=== PATIENT | male | born 1965 | race Caucasian/White ===

== ENCOUNTER 2017-06-04 09:54 | Emergency (ER) | payer MEDICAID ==
[~2017-06-04] VITALS: Ht 172.7 cm; Wt 82.6 kg
[~2017-06-04 09:54] MED LIST: HUM SUBQ; LEVO0.2T5 PO; LISI-420 PO
[2017-06-04 10:24] VITALS: BP 129/86
[2017-06-04] MEDS ORDERED: METF850T4 PO (10:28)
[2017-06-04] MEDS ORDERED: JANUMET (10:28)
--- NOTE | 2017-06-04 10:31 | NUR ---
BLOOD GLUCOSE 467 MG/DL. PT STS TOOK 20 UNITS OF INSULIN THIS AM. LARGE BREAKFAST.
[2017-06-04 11:07] LABS: HEMATOCRIT 46.5 % (36-52); HEMOGLOBIN 15.5 g/dL (12.0-18.0); MEAN CORPUSCULAR HEMOGLOBIN 29 pg (27-31); MEAN CORPUSCULAR HGB CONC 33 g/dL (33-37); MEAN CORPUSCULAR VOLUME 88 fL (80-94); PLATELET COUNT (AUTO) 485 K/uL (140-450); RED BLOOD CELL COUNT(AUTO) 5.31 MIL/uL (4.20-6.10); RED CELL DISTRIBUTION WIDTH 12.5 % (11.6-13.7); WHITE BLOOD COUNT (AUTO) 21.2 K/uL (4.8-10.8)
[2017-06-04 11:23] LABS: ACETONE, SERUM TRACE (NEGATIVE)
[2017-06-04 11:25] LABS: ALBUMIN 3.2 g/dL (3.4-5.0); ANION GAP 16.2 (8-16); ASPARTATE AMINOTRANSFERASE 18 U/L (15-37); CARBON DIOXIDE 27.1 mmol/L (21-32); CHLORIDE 91 mmol/L (98-107); CREATININE 0.9 mg/dL (0.7-1.3); GFR ARICAN-AMERICAN 114 mL/min (>90); POTASSIUM 5.3 mmol/L (3.5-5.1); SODIUM SERUM 129 mmol/L (136-145); TOTAL BILIRUBIN 0.4 mg/dL (0.0-1.0); UREA NITROGEN, BLOOD 22 mg/dL (7-18)
[2017-06-04 11:26] LABS: GLUCOSE 421 mg/dL (74-106)
--- NOTE | 2017-06-04 11:42 | NUR ---
Patient ambulated to bed 07.
--- NOTE | 2017-06-04 11:45 | NUR ---
51/M BIB RECEENTLY DC'D FROM [place] FOR DKA LAST THURSDAY. HERE TODAY FOR PERPETUAL GASTRIC REFLUX CAUSING THROAT PAIN. HX DM, HTN. SKIN IS PINK/WARM/DRY; AAOX4 WITH EVEN AND STEADY GAIT; LUNGS CLEAR BL; PATIENT STATES PAIN OF 8/10 AT THIS TIME; PATIENT POSITIONED FOR COMFORT; HOB ELEVATED; BEDRAILS UP X2; BED DOWN. ER MD MADE AWARE OF PT STATUS.
[2017-06-04 11:55] LABS: EOSINOPHILS % (MANUAL) 6 % (0-4); LYMPHOCYTES % (MANUAL) 17 % (20-46); MONOCYTES % (MANUAL) 4 % (5-12)
--- NOTE | 2017-06-04 11:58 | NUR ---
Dr. Mcclendon evaluating patient at bedside.
[2017-06-04] MEDS ORDERED: INSULIN HUMAN REGULAR 100 UNITS/ML 10 ML VIAL IVP ONE (12:10)
[2017-06-04] MEDS ORDERED: NACL 0.9% 1,000 ML IV ONE (12:10)
[2017-06-04] MEDS ORDERED: DICYCLOMINE HCL LIQUID 20 MG, ALUMINUM HYD/MAG/SIMETHICONE 30 ML, LIDOCAINE VISCOUS 2% ... PO ONE ×3 (12:10)
[2017-06-04 13:08] VITALS: BP 118/71
--- NOTE | 2017-06-04 13:08 | NUR ---
Patient discharged with v/s stable. Written and verbal after care instructions given and explained. Patient alert, oriented and verbalized understanding of instructions. Ambulatory with steady gait. All questions addressed prior to discharge. ID band removed. Patient advised to follow up with PMD. Rx of PRILOSEC given. Patient educated on indication of medication including possible reaction and side effects. Opportunity to ask questions provided and answered.
== END 2017-06-04 13:08 | disposition home or self-care (01) ==
LOC: MED 09:54
DX: K21.9 Gastro-esophageal reflux disease without esophagitis (principal); E11.65 Type 2 diabetes mellitus with hyperglycemia; E03.9 Hypothyroidism, unspecified; F17.210 Nicotine dependence, cigarettes, uncomplicated
CPT/HCPCS: 36415; 71020; 80053; 81002; 82009; 82948; 85025; 96361; 96374; 99285; J1815; J7030

== ENCOUNTER 2018-01-15 12:26 | Emergency (ER) | payer MEDICAID ==
[~2018-01-15] VITALS: Ht 172.7 cm; Wt 69.9 kg
[~2018-01-15 12:26] MED LIST changes: +JANUMET; +METF850T4 PO
[2018-01-15 12:58] VITALS: BP 130/89
--- NOTE | 2018-01-15 13:04 | NUR ---
STREP SWABS COLLECTED AND SENT TO LAB. PT TOLERATED WELL. PT SENT TO LOBBY TO WAIT FOR ED BED.
--- NOTE | 2018-01-15 14:48 | NUR ---
PT AMBULATES TO BED 6 WITH NORMAL GAIT
--- NOTE | 2018-01-15 15:00 | NUR ---
THROAT PAIN FOR A COUPLE MONTHS; REMOVED 12 TEETH THURSDAY; RX'D PCN BUT PATIENT STATES HE CANNOT SWALLOW THE MEDICATION HX DM RX: PENICILLIN VK 500MG QID, INSULIN 70/30; 25 UNITS (10 IN AM; 15 IN PM)
[2018-01-15] MEDS ORDERED: NACL 0.9% 1,000 ML IV SCH (15:22)
[2018-01-15] MEDS ORDERED: ceFAZolin 1,000 MG in DEXT 5% MINI-BAG PLUS 50 ML IV ONE (15:25)
[2018-01-15] MEDS ORDERED: ONDANSETRON 4 MG/2 ML VIAL IVP ONE (15:25)
[2018-01-15] MEDS ORDERED: ceFAZolin 1,000 MG VIAL ONE (15:30)
[2018-01-15 15:58] LABS: BASOPHILS % (AUTO) 0.5 % (0.0-2.0); EOSINOPHILS # (AUTO) 0.1 K/uL (0-0.4); HEMOGLOBIN 16.8 g/dL (12.0-18.0); LYMPHOCYTES # (AUTO) 1.9 K/uL (2.0-11.5); LYMPHOCYTES % (AUTO) 21.3 % (20.5-51.1); MEAN CORPUSCULAR HEMOGLOBIN 30 pg (27-31); MEAN CORPUSCULAR HGB CONC 34 g/dL (33-37); MONOCYTES # (AUTO) 0.5 K/uL (0.8-1.0); MONOCYTES % (AUTO) 6.1 % (1.7-9.3); NEUTROPHILS # (AUTO) 6.3 K/uL (1.8-7.7); NEUTROPHILS % (AUTO) 71.1 % (42.2-75.2); PLATELET COUNT (AUTO) 304 K/uL (140-450); RED BLOOD CELL COUNT(AUTO) 5.55 MIL/uL (4.20-6.10); RED CELL DISTRIBUTION WIDTH 12.9 % (11.6-13.7); WHITE BLOOD COUNT (AUTO) 8.8 K/uL (4.8-10.8)
[2018-01-15 16:21] LABS: ALBUMIN 3.5 g/dL (3.4-5.0); ANION GAP 16.4 (8-16); CREATININE 0.9 mg/dL (0.7-1.3); POTASSIUM 5.4 mmol/L (3.5-5.1); TOTAL BILIRUBIN 0.6 mg/dL (0.0-1.0)
--- NOTE | 2018-01-15 16:30 | NUR ---
PT RESTING IN NO APPERENT DISTRESS. WILL CONTINUE TO MONITOR
[2018-01-15 18:44] VITALS: BP 128/82
--- NOTE | 2018-01-15 18:44 | NUR ---
Patient discharged with v/s stable. Written and verbal after care instructions given and explained. Patient alert, oriented and verbalized understanding of instructions. Ambulatory with steady gait. All questions addressed prior to discharge. ID band removed. Patient advised to follow up with PMD. Rx of LIDOCAINE 2%SOLUTION, REGLAN, CLINDAMYACYN PALMITATE SOLUTION, ZOFRAN ODT 4MG given. Patient educated on indication of medication including possible reaction and side effects. Opportunity to ask questions provided and answered.
== END 2018-01-15 18:44 | disposition home or self-care (01) ==
LOC: MED 12:26
DX: J02.9 Acute pharyngitis, unspecified (principal); R11.0 Nausea; E11.9 Type 2 diabetes mellitus without complications; K21.9 Gastro-esophageal reflux disease without esophagitis; I10 Essential (primary) hypertension; E03.9 Hypothyroidism, unspecified; F17.210 Nicotine dependence, cigarettes, uncomplicated; Z79.899 Other long term (current) drug therapy
CPT/HCPCS: 80053; 82948; 83690; 85025; 87081; 96365; 96375; 99284; J0690; J2405

== ENCOUNTER 2018-04-08 10:21 | Inpatient (IN) | payer MEDICAID, OTHER ==
[~2018-04-08] VITALS: Ht 172.7 cm; Wt 69.9 kg
[2018-04-08 10:30] VITALS: BP 171/89
--- NOTE | 2018-04-08 10:39 | NUR ---
PT AMBULATES TO BED 1
--- NOTE | 2018-04-08 10:40 | NUR ---
PT. BIB W C/O HYPERGLYCEMIA . PT STATES " I HAVE NOT BEEN ABLE TO GET A PRIMARY DOCTOR SO I HAVE BEEN DISPERSING MY INSULIN THAT IS LEFT, THIS MORNING I WOKE UP WITH SHORTNESS OR BREATH AND I JUST FEEL SICK". PT. DENIES ANY PAIN AT THIS TIME. SOB , 2L VIA NC STARTED , ACCESORY MUSCLE USED , TACHYPNEA NOTED. PT. HAS WARM AND DRY SKIN. CLEAR SPEECH, ABLE TO SPEAK IN COMPLETE SENTENCES, O2 : 99% VIA NC 2L. BS: 473 UPON ARRIVAL. PT STATES " I VOMITED 10 TIMES IT WAS BROWNISH SINCE THIS MORNING, I KNOW ITS BECAUSE OF MY BLOOD SUGAR". LS: CLEAR BIALTERALLY. PT. SMOKES " 1/2 A PACK A DAY". GCS 15. ER MD KENNY NOTIFIED. WILL CONTINUE TO MONITOR. AT BEDSIDE.
[2018-04-08] MEDS ORDERED: NACL 0.9% 1,000 ML IV SCH (10:53)
[2018-04-08] MEDS ORDERED: NACL 0.9% 2,000 ML IV SCH (10:53)
[2018-04-08] MEDS ORDERED: INSULIN REGULAR, HUMAN 100 UNIT/ML VIAL SUBQ ONE (11:00)
[2018-04-08 11:12] LABS: BASOPHILS # (AUTO) 0.1 K/uL (0.00-0.22); BASOPHILS % (AUTO) 0.5 % (0.0-2.0); EOSINOPHILS % (AUTO) 0.1 % (0.0-4.0); HEMATOCRIT 50.6 % (36-52); HEMOGLOBIN 16.2 g/dL (12.0-18.0); LYMPHOCYTES # (AUTO) 2.4 K/uL (2.0-11.5); LYMPHOCYTES % (AUTO) 14.3 % (20.5-51.1); MEAN CORPUSCULAR HEMOGLOBIN 30 pg (27-31); MEAN CORPUSCULAR HGB CONC 32 g/dL (33-37); MEAN CORPUSCULAR VOLUME 94.1 fL (80-94); MONOCYTES # (AUTO) 0.8 K/uL (0.8-1.0); MONOCYTES % (AUTO) 4.6 % (1.7-9.3); NEUTROPHILS # (AUTO) 13.5 K/uL (1.8-7.7); NEUTROPHILS % (AUTO) 80.5 % (42.2-75.2); PLATELET COUNT (AUTO) 456 K/uL (140-450); RED BLOOD CELL COUNT(AUTO) 5.38 MIL/uL (4.20-6.10); RED CELL DISTRIBUTION WIDTH 15.2 % (11.6-13.7); WHITE BLOOD COUNT (AUTO) 16.8 K/uL (4.8-10.8)
--- NOTE | 2018-04-08 11:25 | NUR ---
pt unable to provide urine at this time provided with ice water. [place] vazquez notified.
[2018-04-08 11:30] LABS: ACETONE, SERUM SMALL (NEGATIVE); PROTHROMBIN TIME 9.4 secs (10.8-13.4)
--- NOTE | 2018-04-08 11:36 | NUR ---
Note undone in [facility] - 04/08/18 at 1423 by ROBBIN JANIS FROM LAB CALLED TO REPORT CRITICAL LAB FINDING OF LACTIC ACID : 4.4 . JANIS KENNY NOTIFIED. Addendum: 04/08/18 at 1422 by ROBBIN Amendment undone in [facility] - 04/08/18 at 1423 by ROBBIN JANIS FROM LAB CALLED TO REPORT CRITICAL LAB FINDING OF LACTIC ACID : 4.4 . JANIS KENNY NOTIFIED. NO FURTHER ORDERS AT THIS TIME.
--- NOTE | 2018-04-08 11:36 | NUR ---
JANIS FROM LAB CALLED TO REPORT CRITICAL LAB FINDING OF LACTIC ACID : 4.4 . ER MD KENNY NOTIFIED. NO FURTHER ORDERS AT THIS TIME.
[2018-04-08] MEDS ORDERED: INSULIN REGULAR, HUMAN 100 UNIT/ML VIAL IVP ONE (11:40)
[2018-04-08 11:42] LABS: ALBUMIN 4.4 g/dL (3.4-5.0); ANION GAP 35.7 (8-16); CREATININE 1.6 mg/dL (0.7-1.3); POTASSIUM 4.5 mmol/L (3.5-5.1); TOTAL BILIRUBIN 0.4 mg/dL (0.0-1.0)
[2018-04-08 11:46] LABS: CARBON DIOXIDE 6.8 mmol/L (21-32)
--- NOTE | 2018-04-08 11:46 | NUR ---
JANIS CALLED FROM LAB TO REPORT : CO2 6.8 GLUCOSE: 607 . ER MD KENNY NOTIFIED. WILL CONTINUE TO MONITOR.
[2018-04-08] MEDS ORDERED: SODIUM BICARBONATE 8.4% PFS 50 MEQ/50 ML SYR IVP ONE ×2 (11:50)
[2018-04-08] MEDS ORDERED: NACL 0.9% 1,000 ML IV ONE (12:30)
[2018-04-08 12:45] LABS: APPEARANCE,URINE CLEAR (CLEAR); BILIRUBIN,URINE NEGATIVE (NEGATIVE); BLOOD, URINE TRACE-L (NEGATIVE); COLOR,URINE YELLOW (YELLOW); LEUKOCYTE ESTERASE ,URINE NEGATIVE (NEGATIVE); NITRITE, URINE NEGATIVE (NEGATIVE); UGLUCOSE 3+ (NEGATIVE)
--- NOTE | 2018-04-08 12:46 | NUR ---
pt. in bed , resting comfortably . bed in lowest position. o2 : 100% via 2L VIA NC . AT BEDSIDE. WILL CONTINUE TO MONITOR.
[2018-04-08] MEDS ORDERED: ONDANSETRON 4 MG/2 ML VIAL IM/IVP PRN (12:55)
[2018-04-08] MEDS ORDERED: DOCUSATE SODIUM 100 MG GELCAP PO PRN (12:55)
[2018-04-08] MEDS ORDERED: ACETAMINOPHEN 325 MG TAB PO PRN (12:55)
[2018-04-08] MEDS ORDERED: HYDROcodone/APAP 7.5/325 MG 1 TAB PO PRN (12:55)
[2018-04-08 13:01] LABS: RBC,URINE 0-5 (RARE) /HPF (0-5); WBC,URINE 0-5 (RARE) /HPF (0-5)
[2018-04-08 13:04] LABS: BARBITURATE, URINE NEG. ng/ml (NEG <=200); BENZODIAZEPINE, URINE NEG. ng/mL (NEG <=200); CANNABINOID, URINE NEG. ng/mL (NEG <=50); COCAINE, URINE NEG. ng/mL (NEG <=300); OPIATE, URINE NEG. ng/mL (NEG <=2000); PHENCYCLIDINE SCREEN,URINE NEG. ng/mL (NEG <=25)
--- NOTE | 2018-04-08 13:28 | NUR ---
Patient will be admitted to care of DR. LE . Admited to ICU . Will go to room #2 . Belongings list completed. Report to SADIA BRUCE .
[2018-04-08] MEDS ORDERED: INSULIN REGULAR, HUMAN 100 UNIT in NACL 0.9% 100 ML IV SCH ×4 (13:30→16:30)
[2018-04-08] MEDS ORDERED: DEXTROSE 50% 50 ML SYR IVP PRN (13:30)
--- NOTE | 2018-04-08 13:35 | NUR ---
RECEIVED PATIENT FROM SUPERVISOR STERILE PROCESSING FOR CONTINUITY OF CARE. PATIENT IS AAOX4, ABLE TO MAKE NEEDS KNOWN, FOLLOWS SIMPLE COMMANDS. PATIENT SKIN IS INTACT, HE HAS PERIPHERAL IV SITE TO RIGHT HAND, 22 GAUGE AND LEFT AC, 20 GAUGE. PATIENT IS ON NASAL CANNULA 2 LPM, O2 SAT IS 99%, BREATHING IS UNLABORED AND EVEN, DENIES ANY SOB. SR ON MONITOR, DENIES ANY PAIN. HOB IS 30 DEGREES IN A LOW POSITION, ALL SAFETY PRECAUTIONS IN PLACE.NO SIGNS OF DISTRESS NOTED. CALL LIGHT WITHIN REACH, WILL CONTINUE TO MONITOR
[2018-04-08 13:46] LABS: CHOL/HDL RATIO 3.1 (1-4.5); FREE T4 (FREE THYROXINE) 0.43 ng/dL (0.76-1.46); PHOSPHORUS 6.6 mg/dL (2.5-4.9); THYROID STIMULATING HORMONE 64.25 uIU/mL (0.34-3.74)
[2018-04-08 14:00] VITALS: BP 142/89
[2018-04-08] MEDS ORDERED: HYDROmorphone 1 MG/ML AMP IVP SCH (14:00)
[2018-04-08] MEDS ORDERED: LORazepam 2 MG/ML VIAL IVP SCH (14:00)
[2018-04-08] MEDS: BLOOD GLUCOSE MONITORING 1 DEV DEV FS SCH ×11 (14:07→23:12)
[2018-04-08] MEDS: NACL 0.9% 1,000 ML IV SCH ×2 (14:08→20:10)
--- NOTE | 2018-04-08 14:39 | NUR ---
DR. ROBERTS IN FOR PLACEMENT OF CENTRAL LINE, TECH AT BEDSIDE, NO SIGNS OF DISTRESS NOTED.
--- NOTE | 2018-04-08 14:59 | NUR ---
INSERTION OF CENTRAL LINE TO RIGHT IJ IS COMPLETE, PATIENT TOLERATED WELL. WILL CONTINUE TO MONITOR
[2018-04-08 15:21] LABS: ANION GAP 29.1 (8-16); CREATININE 1.3 mg/dL (0.7-1.3); POTASSIUM 5.1 mmol/L (3.5-5.1)
[2018-04-08 16:00] VITALS: BP 110/60
--- NOTE | 2018-04-08 16:19 | NUR ---
VBG DRAWN BY SADIA MEDINA. LAB AT BEDSIDE. SAMPLE CLOTTED RIGHT AWAY. DR ROBERTS NOTIFIED.
--- NOTE | 2018-04-08 16:19 | NUR ---
US TECH AT BEDSIDE, NO SIGNS OF DISTRESS NOTED. WILL CONTINUE TO MONITOR
--- NOTE | 2018-04-08 16:21 | NUR ---
DR. OVERTON AT BEDSIDE, UPDATED ON PATIENT'S CONDITION. WILL FOLLOW UP ON ANY ORDERS.
[2018-04-08] MEDS ORDERED: DEXT 5% / NACL 0.45% 1,000 ML IV SCH (16:26)
[2018-04-08 16:34] LABS: MAGNESIUM 1.8 mg/dL (1.8-2.4)
[2018-04-08 16:48] LABS: ANION GAP 25.2 (8-16); POTASSIUM 3.2 mmol/L (3.5-5.1)
[2018-04-08] MEDS ORDERED: metFORMIN 500 MG TAB PO SCH (17:00)
[2018-04-08] MEDS: LEVOTHYROXINE 200 MCG VIAL IV SCH (17:14)
[2018-04-08] MEDS: PIPER/TAZO 3.375GM/D5W PREMIX 50 ML IV SCH ×2 (17:31→23:14)
[2018-04-08 18:00] VITALS: BP 108/63
[2018-04-08] MEDS ORDERED: KCL 20 MEQ/WATER INJ PREMIX 100 ML IV SCH (19:00)
--- NOTE | 2018-04-08 19:06 | NUR ---
ENDORSED CONTINUITY OF CARE TO STRUCTURAL STEEL ENGINEER RN, NO SIGNS OF DISTRESS AT THIS TIME
--- NOTE | 2018-04-08 19:15 | NUR ---
RECEIVED REPORT FROM MORNING RN FOR CONTINUITY OF CARE. VS STABLE AT THIS TIME. PT DROWSY BUT AROUSABLE. PT DENIES PAIN AT THIS TIME. AFEBRILE. PERRL. PT ABLE TO MAKE NEEDS KNOWN. LUNG SOUNDS CLEAR. PT ON OXYGEN AT 2L/MIN VIA NC. S1+S2 HEARD. SINUS RHYTHM ON MONITOR. BP WNL. ABDOMEN ROUND, SOFT AND NONDISTENDED. BS ACTIVE IN ALL QUADRANTS. PT HAS RIGHT IJ CENTRAL LINE TRIPLE LUMEN. PORTS WERE FLUSHED AND WERE PATENT, INTACT AND ASYMPTOMATIC. PT ALSO HAS PERIPHERAL IV ACCESS IN LEFT AC 20G. PER REPORT LAST BLOOD GLUCOSE IS 220. PT ABLE TO TURN AND REPOSITION SELF. ALL SAFETY PRECAUTIONS IN PLACE. BED AT LOW POSSIBLE POSITION. HOB AT 30 DEGREES.
[2018-04-08 20:00] VITALS: BP 107/63
--- NOTE | 2018-04-08 20:00 | NUR ---
THUMB SEWER AT BEDSIDE FOR 2000 LABS. RN DRAWN BLOOD SPECIMEN FROM CENTRAL LINE. LINE STILL FLUSHING WELL.
[2018-04-08 20:20] LABS: ANION GAP 16.2 (8-16); CARBON DIOXIDE 20.4 mmol/L (21-32); POTASSIUM 3.6 mmol/L (3.5-5.1)
[2018-04-08 20:23] LABS: MAGNESIUM 1.7 mg/dL (1.8-2.4); PHOSPHORUS 1.7 mg/dL (2.5-4.9)
--- NOTE | 2018-04-08 20:43 | NUR ---
INFORMED DR. ROBERTSON REGARDING MAGNESIUM LEVEL OF PATIENT AT 1.7; RECEIVED NEW ORDER.
[2018-04-08] MEDS ORDERED: MAG SULF 2000 MG/WATER PREMIX 50 ML IV SCH (21:15)
[2018-04-08 22:00] VITALS: BP 104/59
--- NOTE | 2018-04-08 22:20 | NUR ---
CALLED RESIDENT DOCTORS AND SPOKE WITH DR. BANG, INFORMED HER REGARDING CURRENT BLOOD GLUCOSE LEVEL. PER DR. BANG START PT ON D5 0.45%NS BETWEEN 150ML-250ML.
--- NOTE | 2018-04-08 22:34 | NUR ---
ASKED PT IF HE NEEDS ANYTHING AND HE SAID NO. OFFERED TO USE THE URINAL AND SAYS HE DOES NOT NEED IT. PT PROCEEDED TO CLOSE HIS EYES. BG NOW BELOW 200 AND IV FLUIDS SWITCHED PER DKA PROTOCOL.
[2018-04-09] VITALS (11 sets, daily range): BP systolic 100–135; BP diastolic 66–80
--- NOTE | 2018-04-09 00:05 | NUR ---
CHECKING PT'S BLOOD GLUCOSE. SHEET IS NOTED TO BE WET. PT VOIDED AND WAS NOT ABLE TO ASK FOR URINAL. LINENS ARE CHANGED. PT ABLE TO HELP WITH TURNING AND REPOSITIONING. PT DENIES BEING IN PAIN OR IN ANY DISCOMFORT AT THIS TIME. ALL SAFETY PRECAUTIONS IN PLACE. CALL LIGHT WITHIN REACH.
[2018-04-09] MEDS: BLOOD GLUCOSE MONITORING 1 DEV DEV FS SCH ×10 (00:11→21:55)
--- NOTE | 2018-04-09 00:15 | NUR ---
PT HAD 1 SMALL, BROWN EMESIS. PT CLEANED AND GOWN CHANGED. OXYGEN SATURATION WITHIN NORMAL LIMITS. PT STATES THAT HE IS OKAY. WILL CONTINUE TO MONITOR PT.
[2018-04-09 01:03] LABS: ANION GAP 10.2 (8-16); CARBON DIOXIDE 23.2 mmol/L (21-32); CREATININE 1.1 mg/dL (0.7-1.3); POTASSIUM 3.4 mmol/L (3.5-5.1)
[2018-04-09 01:07] LABS: PHOSPHORUS 1.3 mg/dL (2.5-4.9)
--- NOTE | 2018-04-09 02:30 | NUR ---
SR ON MONITOR. NO CURRENT CHANGE IN CONDITION AT THIS TIME. VS STABLE. ON INSULIN DRIP.
[2018-04-09] MEDS: NACL 0.9% 1,000 ML IV SCH ×5 (02:50→22:05)
[2018-04-09] MEDS ORDERED: SODIUM PHOS / POTASSIUM PHOS 1 PKT PDR PO SCH (03:40)
[2018-04-09] MEDS ORDERED: POTASSIUM CHLORIDE 10 MEQ TABER PO SCH (03:40)
[2018-04-09] MEDS ORDERED: SODIUM PHOS / POTASSIUM PHOS 1 PKT PDR ONE (04:16)
--- NOTE | 2018-04-09 04:26 | NUR ---
MORNING CARE PROVIDED TO PT. PT VOIDED AND WAS NOT ABLE TO ASK FOR URINAL. PT IN BED WITH EYES CLOSED AT THIS TIME.
[2018-04-09 04:44] LABS: MAGNESIUM 1.8 mg/dL (1.8-2.4); PHOSPHORUS 1.4 mg/dL (2.5-4.9)
[2018-04-09 05:01] LABS: CARBON DIOXIDE 23.2 mmol/L (21-32); CREATININE 0.9 mg/dL (0.7-1.3); POTASSIUM 3.2 mmol/L (3.5-5.1)
--- NOTE | 2018-04-09 05:08 | NUR ---
CALLED RESIDENT DOCTORS AND SPOKE WITH DR. BANG; INFORMED HER REGARDING THE ANION GAP AT LESS THAN 12 X2 READINGS. RECEIVED NEW ORDERS.
[2018-04-09 05:14] LABS: HEMOGLOBIN 12.6 g/dL (12.0-18.0); MEAN CORPUSCULAR HEMOGLOBIN 30 pg (27-31); MEAN CORPUSCULAR HGB CONC 34 g/dL (33-37); MEAN CORPUSCULAR VOLUME 88.3 fL (80-94); PLATELET COUNT (AUTO) 306 K/uL (140-450); RED BLOOD CELL COUNT(AUTO) 4.19 MIL/uL (4.20-6.10); RED CELL DISTRIBUTION WIDTH 14.6 % (11.6-13.7)
--- NOTE | 2018-04-09 05:25 | NUR ---
CALLED DR. BANG AND FOLLOWED UP WITH BLOOD SUGAR CHECK ORDER.
[2018-04-09 05:41] LABS: WHITE BLOOD COUNT (AUTO) 15.3 K/uL (4.8-10.8)
[2018-04-09 05:42] LABS: LYMPHOCYTES % (MANUAL) 7 % (20-46); MONOCYTES % (MANUAL) 6 % (5-12)
--- NOTE | 2018-04-09 05:43 | NUR ---
DR. ROBERTS AT BEDSIDE TO SEE PT. INFORMED HIM REGARDING CHANGE IN PT CONDITION. WILL FOLLOW-UP WITH ANY NEW ORDERS.
[2018-04-09] MEDS ORDERED: KCL 20 MEQ/WATER INJ PREMIX 200 ML IV SCH (05:45)
[2018-04-09] MEDS: PIPER/TAZO 3.375GM/D5W PREMIX 50 ML IV SCH ×3 (06:05→18:09)
[2018-04-09] MEDS ORDERED: LEVOTHYROXINE 0.1 MG TAB PO SCH (06:30)
[2018-04-09] MEDS: INSULIN LISPRO SLIDING SCALE 100 UNITS/ML VIAL SUBQ PRN ×4 (06:35→21:57)
--- NOTE | 2018-04-09 07:08 | NUR ---
REPORT GIVEN TO MORNING RN, LIZA, FOR CONTINUITY OF CARE. VS STABLE AT THIS TIME.
[2018-04-09] MEDS ORDERED: BLOOD GLUCOSE MONITORING 1 DEV DEV FS SCH (07:30)
--- NOTE | 2018-04-09 07:30 | NUR ---
RECEIVED BEDSIDE REPORT FROM PM NURSE, PT DROWSY BUT AROUSABLE WHILE ASSESSING PT. ON O2 NC 2L/MIN, NO S/S OF RESPIRATORY DISTRESS NOTED. LUNG SOUND CLEAR. PT HAS RIGHT IJ TLC RUNNING NS AT 110 MLS/HR, SITE INTACT AND PATENT. PT ABLE TO MOVE ALL HIS EXTREMITIES AND TURN HIMSELF . CALL LIGHT IN REACH, WILL CONTINUE TO MONITOR.
[2018-04-09] MEDS: ATORVASTATIN 20 MG TAB PO SCH (08:27)
[2018-04-09] MEDS: LISINOPRIL 20 MG TAB PO SCH (08:27)
[2018-04-09] MEDS: INSULIN LANTUS 100 UNITS/ML 10 ML VIAL SUBQ SCH (08:29)
--- NOTE | 2018-04-09 08:56 | NUR ---
PATIENT HAS BEEN SCREENED AND CATEGORIZED HIGH NUTRITION RISK. PATIENT WILL BE SEEN WITHIN 1-2 DAYS OF ADMISSION. 04/09/18 04/10/[address]
--- NOTE | 2018-04-09 09:00 | NUR ---
DUE MEDS GIVEN, PT TOLERATED WELL.
[2018-04-09] MEDS ORDERED: KCL 20 MEQ/WATER INJ PREMIX 100 ML IV SCH (10:00)
--- NOTE | 2018-04-09 11:45 | NUR ---
FINGER BS CHECKED 185, INSULIN SLIDING SCALE 2 UNITS COVERAGE GIVEN.
--- NOTE | 2018-04-09 11:49 | NUR ---
CM NOTE INITIAL REVIEW FAXED TO [facility] [phone] # [phone] [facility] EXT [phone]
--- NOTE | 2018-04-09 12:00 | NUR ---
PT USE URINAL TO PEE 600 MLS OUTPUT.
--- NOTE | 2018-04-09 12:17 | NUR ---
CM NOTE PER CHAIN MORTISER OPERATOR CASSIDY, PATIENT ALSO HAS [facility]. INITIAL REVIEW FAXED TO [facility] [phone] PH# [phone]. FAXED ORDER FOR INSULIN TO [facility]. PER [facility] PH# [phone] EXT [phone], CHECK WITH THEIR PHARMACY AUTHORIZATION DEPT IF MEDICATION IS COVERED. PER SUPERVISOR VOLUNTEER SERVICES ROZ OF [facility] AUTH DEPT PH# [phone], PATIENT'S INSULIN SHOULD BE COVERED AND TO JUST FAX THE ORDER TO PATIENT'S PHARMACY OF CHOICE. SPOKE WITH PATIENT BEDSIDE WITH KHRIS LUND AND ASKED HIM WHICH PHARMACY HE GOES TO AND IF HE WANTS US TO SEND THE ORDER FOR HIS INSULIN TO THAT PHARMACY. PER PATIENT HE GOES TO PHARMACY IN [place] AND HE WANTS US TO SEND THE ORDER FOR HIS INSULIN TO THAT PHARMACY FOR HIM TO TURBO ELECTRIC OPERATOR UPON DISCHARGE. SPOKE WITH SUPERVISOR VOLUNTEER SERVICES KEVIN OF PHARMACY IN [place] PH# [phone] AND HE CONFIRMED THAT PATIENT DOES GO TO THEIR PHARMACY FOR HIS MEDICINES. FAXED INSULIN ORDER TO PHARMACY [phone] [facility] PH# [phone]. LIZA MCCULLOUGH AWARE.
--- NOTE | 2018-04-09 12:30 | NUR ---
LUNCH TRAY SERVED, PT HAD A GOOD APPETITE.
--- NOTE | 2018-04-09 14:58 | NUR ---
04/09/18 RD INITIAL ASSESSMENT COMPLETED PLEASE REFER TO NUTRITION ASSESSMENT UNDER CARE ACTIVITY FOR ESTIMATED NUTRITIONAL NEEDS. 1. CONTINUE CCHO 60 DIET TOLERATED. 2. RECOMMEND GLUCERNA BID IF NAUSEA PERSISTED. 3. RD TO FOLLOW-UP 3-5 DAYS, MODERATE RISK. EDITH LAKE, RD
--- NOTE | 2018-04-09 15:55 | NUR ---
TRANSFERRED PT TO TELE 120 A. ALL PERSOANL BELONGINGS WITH PT. BEDSIDE REPORT GIVEN TO EILEEN MCCULLOUGH. PT IN STABLE CONDITION AT THIS MOMENT. Addendum: 04/09/18 at 1658 by Marifer Saunders RN 112A INSTEAD OF 120 A
[2018-04-09] MEDS: LEVOTHYROXINE 200 MCG VIAL IV SCH (18:08)
--- NOTE | 2018-04-09 18:17 | NUR ---
PATIENT SITTING IN BED WITH DINNER TRAY IN FRONT. NO DISTRESS NOTED. DENIES ANY PAIN. SCHEDULED MEDICATIONS DUE GIVEN. SAFETY MEASURES IN PLACE, CALL LIGHT WITHIN REACH. WILL CONTINUE TO MONITOR.
--- NOTE | 2018-04-09 19:29 | NUR ---
GAVE REPORT TO POCKET SETTER LOCKSTITCH NURSE FOR CONTINUITY OF CARE. PATIENT IN STABLE CONDITION.
--- NOTE | 2018-04-09 19:30 | NUR ---
RECEIVED PT FROM EILEEN MCCULLOUGH PT IS AAOX4 RESTING ONBED ON TELMETRY SR IV FLUIDS INFUSING WELL ON RT IF CENTRAL LINE NOT DISTRESS NOTED INITIAL ASSESSMENT DONE
--- NOTE | 2018-04-09 21:30 | NUR ---
BLOOD SUGAR TEST 275 COVERAGE WITH 6 UNITS SUBQ HUMALOG FOLLOW PROTOCOL
[2018-04-10] VITALS: BP 98/55
--- NOTE | 2018-04-10 | NUR ---
PT SLEEPING NOT DISTRESS NOTED ON TELMETRY SR PT VOIDING WELL
[2018-04-10] MEDS ORDERED: PIPERACILLIN/TAZOBACTAM 3.375 GM VIAL IV ONE (00:23)
[2018-04-10] MEDS: PIPER/TAZO 3.375GM/D5W PREMIX 50 ML IV SCH ×4 (00:49→17:11)
[2018-04-10 04:00] VITALS: BP 120/72
--- NOTE | 2018-04-10 04:00 | NUR ---
SPONGE BATH GIVEN LINEN CHANGED ON TELMETRY SR NOT DISTRESS NOTED
[2018-04-10] MEDS: BLOOD GLUCOSE MONITORING 1 DEV DEV FS SCH ×4 (06:48→20:23)
--- NOTE | 2018-04-10 06:51 | NUR ---
AFTER PAIN MEDIC GIVEN PT REMAIN STABLE BLOOD SUGAR TEST 118
[2018-04-10 07:18] LABS: MAGNESIUM 1.6 mg/dL (1.8-2.4); PHOSPHORUS 1.6 mg/dL (2.5-4.9)
[2018-04-10 07:19] LABS: ANION GAP 9.8 (8-16); CARBON DIOXIDE 26.2 mmol/L (21-32); CREATININE 0.6 mg/dL (0.7-1.3)
--- NOTE | 2018-04-10 07:30 | NUR ---
RECEIVED REPORT FROM THE CASINO SLOT SUPERVISOR NURSE AT BEDSIDE FOR CONTINUITY OF CARE. PT IS AWAKE AND ORIENTED. INTRODUCED MYSELF AND UPDATED THE BOARD. PT IS AMBULATORY, SKIN INTACT, LBM 04/07/18 AT HOME. DENIES ABD PAIN, BLOATING, CONSTIPATION. IV ON L AC 20G SL, AND RIJ INFUSING IV 110ML/HR. BAG IS ALMOST EMPTY. WILL REPLACE. PT ON ROOM AIR. DENIES PAIN. V/S WITHIN NORMAL RANGE. DOES C/O SORE THROAT. WILL ASK ABOUT THROAT LOZENGE. WILL CONTINUE TO MONITOR PT.
[2018-04-10 08:00] VITALS: BP 111/70
[2018-04-10] MEDS: LISINOPRIL 20 MG TAB PO SCH (08:53)
[2018-04-10] MEDS: NACL 0.9% 1,000 ML IV SCH ×2 (08:53→17:11)
[2018-04-10] MEDS: ATORVASTATIN 20 MG TAB PO SCH (08:53)
[2018-04-10] MEDS: INSULIN LANTUS 100 UNITS/ML 10 ML VIAL SUBQ SCH (08:58)
[2018-04-10] MEDS: BENZOCAINE/MENTHOL 1 LOZ MM PRN ×2 (09:09→12:29)
[2018-04-10] MEDS: KCL 20 MEQ/WATER INJ PREMIX 100 ML IV SCH ×2 (09:13→11:23)
--- NOTE | 2018-04-10 09:14 | NUR ---
ADMINISTERED MORNING MEDS. INCLUDING KRIDER AND CEPACOL LOZENGE FOR HIS THROAT PAIN. NEW IVF STARTED. PT TOLERATED WELL. WILL CONTINUE TO MONITOR PT.
[2018-04-10] MEDS ORDERED: MAG SULF 2000 MG/WATER PREMIX 100 ML IV ONE (11:10)
--- NOTE | 2018-04-10 11:23 | NUR ---
DR. MYLES HERE TO ASSESS PT. ADMINISTERED 2ND BAG OF KRIDER. PT TOLERATING WELL. WILL CONTINUE TO MONITOR PT.
[2018-04-10 12:00] VITALS: BP 110/62
[2018-04-10] MEDS: SODIUM PHOS / POTASSIUM PHOS 1 PKT PDR PO SCH ×2 (12:28→20:14)
[2018-04-10] MEDS: INSULIN LISPRO SLIDING SCALE 100 UNITS/ML VIAL SUBQ PRN ×3 (12:29→20:22)
[2018-04-10] MEDS ORDERED: MAG SULF 2000 MG/WATER PREMIX 50 ML IV SCH (13:00)
--- NOTE | 2018-04-10 13:01 | NUR ---
PT VISITING WITH FAMILY. NO SIGNS OF DISTRESS. FINISHING UP ZOSYN. WILL START MAG. WILL CONTINUE TO MONITOR PT.
[2018-04-10] MEDS ORDERED: BISACODYL 10 MG SUPP RC SCH (13:30)
[2018-04-10 14:08] LABS: BASOPHILS % (AUTO) 0.2 % (0.0-2.0); EOSINOPHILS # (AUTO) 0.1 K/uL (0-0.4); EOSINOPHILS % (AUTO) 0.4 % (0.0-4.0); LYMPHOCYTES # (AUTO) 2.6 K/uL (2.0-11.5); LYMPHOCYTES % (AUTO) 17.8 % (20.5-51.1); MEAN CORPUSCULAR HEMOGLOBIN 30 pg (27-31); MEAN CORPUSCULAR HGB CONC 33 g/dL (33-37); MEAN CORPUSCULAR VOLUME 88.9 fL (80-94); NEUTROPHILS % (AUTO) 74.6 % (42.2-75.2); PLATELET COUNT (AUTO) 298 K/uL (140-450); RED BLOOD CELL COUNT(AUTO) 4.39 MIL/uL (4.20-6.10); WHITE BLOOD COUNT (AUTO) 14.8 K/uL (4.8-10.8)
--- NOTE | 2018-04-10 14:13 | NUR ---
LATE ENTRY. BEFORE GOING TO MY LUNCH. GAVE PT SUPPOSITORY. WHILE AT LUNCH, PT CALLED FOR ASSISTANCE TO THE BATHROOM. HAD A BM. BACK INTO BED.
[2018-04-10 16:00] VITALS: BP 110/67
[2018-04-10] MEDS: LEVOTHYROXINE 200 MCG VIAL IV SCH (17:11)
--- NOTE | 2018-04-10 17:22 | NUR ---
ADMINISTERED SCHEDULED MEDICATIONS. PT TOLERATED WELL. WILL CONTINUE TO MONITOR PT.
--- NOTE | 2018-04-10 19:20 | NUR ---
ENDORSED PT THE BUFFING WHEEL FORMER MACHINE NURSE AT BEDSIDE FOR CONTINUITY OF CARE. PT IS IN STABLE CONDITION.
--- NOTE | 2018-04-10 19:25 | NUR ---
RECEIVED PATIENT RESTING COMFORTABLE ON BED. FALL PRECAUTION APPLIED. DISCUSS PLAN OF CARE AND VERBALIZED UNDERSTANDING. CALL LIGHT WITHIN REACH. WILL CONTINUE TO MONITOR.
[2018-04-10 20:00] VITALS: BP 102/53
[2018-04-10] MEDS: INSULIN NPH HUM/REG INSULIN HM 100 UNIT/ML 10 ML VIAL SUBQ SCH (20:10)
--- NOTE | 2018-04-10 21:00 | NUR ---
BS TAKEN AND RECORDED 319 WITH COVERAGE. INSULIN GIVEN PER SLIDING SCALE. SCHEDULE . SCHEDULE MEDICATION GIVEN AND TOLERATED WELL. NO S/S OF DISTRESS NOTED. CALL LIGHT WITHIN REACH. WILL CONTINUE TO MONITOR.
[2018-04-11] VITALS: BP 101/69
[2018-04-11] MEDS: PIPER/TAZO 3.375GM/D5W PREMIX 50 ML IV SCH ×3 (00:33→12:56)
--- NOTE | 2018-04-11 01:13 | NUR ---
BS TAKEN AND RECORDED. SNACK GIVEN. PATIENT BACK TO SLEEP . SCHEDULE MEDICATION GIVEN. NO S/S OF DISTRESS NOTED. CALL LIGHT WITHIN REACH. ALL NEEDS ATTENDED. WILL CONTINUE TO MONITOR.
--- NOTE | 2018-04-11 03:00 | NUR ---
SEEN PATIENT ASLEEP COMFORTABLE ON BED. NO S/S OF DISTRESS NOTED. CALL LIGHT WITHIN REACH. WILL CONTINUE TO MONITOR.
[2018-04-11] MEDS: NACL 0.9% 1,000 ML IV SCH (03:02)
[2018-04-11 04:00] VITALS: BP 101/58
--- NOTE | 2018-04-11 04:00 | NUR ---
V/S TAKEN AND RECORDED. NO S/S OF DISTRESS NOTED. CALL LIGHT WITHIN REACH. WILL CONTINUE TO MONITOR.
[2018-04-11] MEDS: SODIUM PHOS / POTASSIUM PHOS 1 PKT PDR PO SCH ×2 (04:19→12:57)
--- NOTE | 2018-04-11 04:31 | NUR ---
SCHEDULE MEDICATION GIVEN TOLERATED WELL.
--- NOTE | 2018-04-11 05:30 | NUR ---
PATIENT REFUSE BLOOD DRAWN PER SUGAR TRUCKER.
[2018-04-11] MEDS: BLOOD GLUCOSE MONITORING 1 DEV DEV FS SCH ×2 (06:09→11:30)
[2018-04-11] MEDS: INSULIN LISPRO SLIDING SCALE 100 UNITS/ML VIAL SUBQ PRN ×2 (06:11→12:59)
--- NOTE | 2018-04-11 07:17 | NUR ---
ENDORSEMENT GIVEN TO AM SHIFT NURSE AT BEDSIDE FOR CONTINUITY OF CARE. PATIENT IN STABLE CONDITION. CALL LIGHT WITHIN REACH.
--- NOTE | 2018-04-11 07:30 | NUR ---
RECEIVED PT ON BED AAOX4. NO SOB NOTED. NO C/O PAIN AT THIS TIME. WITH RT IC CENTRAL LINE AND IV TO LT AC PATENT AND INTACT. CHEST DIMINISHED AIR ENTRY TO THE BASES OTHER ESPINOSA CLEAR. ABDOMEN SOFT, BOWEL SOUNDS PRESENT. NO EDEMA NOTED. INSTRUCTED PT TO CALL FOR ASSISTANCE, CALL LIGHT WITHIN REACH. PT VERBALIZED UNDERSTANDING.
[2018-04-11 08:00] VITALS: BP 108/70
[2018-04-11] MEDS: LISINOPRIL 20 MG TAB PO SCH (09:00)
[2018-04-11] MEDS: BENZOCAINE/MENTHOL 1 LOZ MM PRN (09:55)
[2018-04-11] MEDS: ATORVASTATIN 20 MG TAB PO SCH (09:55)
[2018-04-11] MEDS: INSULIN NPH HUM/REG INSULIN HM 100 UNIT/ML 10 ML VIAL SUBQ SCH (09:57)
--- NOTE | 2018-04-11 11:00 | NUR ---
BLOOD DRAWN THROUGH THE CENTRAL LINE FOR TODAY'S CBC AND BMP.
[2018-04-11 12:00] VITALS: BP 102/72
[2018-04-11 12:21] LABS: BASOPHILS % (AUTO) 0.3 % (0.0-2.0); EOSINOPHILS # (AUTO) 0.1 K/uL (0-0.4); EOSINOPHILS % (AUTO) 1.6 % (0.0-4.0); HEMATOCRIT 31.7 % (36-52); LYMPHOCYTES # (AUTO) 2.3 K/uL (2.0-11.5); LYMPHOCYTES % (AUTO) 25.2 % (20.5-51.1); MEAN CORPUSCULAR HEMOGLOBIN 31 pg (27-31); MEAN CORPUSCULAR HGB CONC 35 g/dL (33-37); MEAN CORPUSCULAR VOLUME 88.2 fL (80-94); MONOCYTES # (AUTO) 0.7 K/uL (0.8-1.0); MONOCYTES % (AUTO) 7.8 % (1.7-9.3); NEUTROPHILS # (AUTO) 5.9 K/uL (1.8-7.7); NEUTROPHILS % (AUTO) 65.1 % (42.2-75.2); PLATELET COUNT (AUTO) 244 K/uL (140-450); RED BLOOD CELL COUNT(AUTO) 3.59 MIL/uL (4.20-6.10); RED CELL DISTRIBUTION WIDTH 14.5 % (11.6-13.7)
[2018-04-11 12:43] LABS: CREATININE 0.6 mg/dL (0.7-1.3)
--- NOTE | 2018-04-11 16:30 | NUR ---
PT STATED HE WANTS TO GO AMA SINCE HIS BLOOD SUGAR IS ALREADY GETTING BACK TO NORMAL RANGE. EXPLAINED TO PT THE RISKS AND CONSEQUENCES OF LEAVING THE HOSPITAL AGAINST MEDICAL ADVICE. PT VERBALIZED UNDERSTANDING AND STATED HE WILL TAKE RESPONSIBILITY FOR IT. CENTRAL LINE AND PERIPHERAL IV REMOVED, CANNULA TIP INTACT. PRESSURE APPLIED TO POST CENTRAL LINE SITE. WILL MONITOR FOR BLEEDING. PT SIGNED AMA FORM.
--- NOTE | 2018-04-11 16:45 | NUR ---
PT WALKED OUT FROM MST FLOOR IN STABLE CONDITION WITH . PT WITH STEADY GAIT NOTED. NO COMPLAINTS MADE. NO BLEEDING ON PREVIOUS CENTRAL SITE. PT WENT AMA.
[2018-04-14 19:45] LABS: T4 (THYROXINE) 0.5 ug/dL (4.5 - 12.0)
== END 2018-04-11 16:45 | disposition left against medical advice (07) | DRG 420 ==
LOC: MED 10:21 → MIC 12:51 → MTU 04-09 16:00
PROVIDERS: ADMIT General Practice; ATTEND General Practice
PROC: 05HM33Z Insertion of Infusion Device into Right Internal Jugular Vein, Percutaneous Approach (ICD-10-PCS; principal; 2018-04-08)
PROC: B543ZZA Ultrasonography of Right Jugular Veins, Guidance (ICD-10-PCS; 2018-04-08)
DX: E11.10 Type 2 diabetes mellitus with ketoacidosis without coma (principal); N17.0 Acute kidney failure with tubular necrosis; G93.41 Metabolic encephalopathy; E83.39 Other disorders of phosphorus metabolism; E86.0 Dehydration; E86.9 Volume depletion, unspecified; E03.9 Hypothyroidism, unspecified; K21.9 Gastro-esophageal reflux disease without esophagitis; I10 Essential (primary) hypertension; F17.200 Nicotine dependence, unspecified, uncomplicated; F12.90 Cannabis use, unspecified, uncomplicated; Z53.21 Procedure and treatment not carried out due to patient leaving prior to being seen by health care provider; J44.9 Chronic obstructive pulmonary disease, unspecified; R62.7 Adult failure to thrive; E11.65 Type 2 diabetes mellitus with hyperglycemia; E78.2 Mixed hyperlipidemia; F15.90 Other stimulant use, unspecified, uncomplicated; E87.1 Hypo-osmolality and hyponatremia; F43.9 Reaction to severe stress, unspecified; Z91.14 Patient's other noncompliance with medication regimen; Z79.4 Long term (current) use of insulin; Z79.899 Other long term (current) drug therapy; Z83.3 Family history of diabetes mellitus
CPT/HCPCS: 36415; 36600; 71045; 80048; 80053; 80305; 81001; 82009; 82150; 82803; 82948; 83036; 83605; 83690; 83735; 83880; 84100; 84436; 84439; 84443; 84479; 84484; 85025; 85610; 85730; 87040; 87081; 87086; 93005; 93925; 93970; 96361; 96372; 96374; 96375; 99291; G0482; J1170; J1642; J1815; J2060; J2405; J2543; J3475; J3480; J3490; J7030; J7060; Q0092